=== PATIENT | male | born 1990 | race Caucasian/White ===

== ENCOUNTER 2020-10-14 17:17 | Emergency (ER) | payer OTHER ==
[2020-10-14 17:26] VITALS: BP 140/90
--- NOTE | 2020-10-14 17:27 | ED Physician Documentation ---
History of Present Illness - Stated complaint Stated Complaint: BUMP ON TOE - Chief complaint Chief Complaint: Ext Problem PD PAST MEDICAL HISTORY - Allergies Allergies/Adverse Reactions: Allergies Allergy/AdvReac Type Severity Reaction Status Date / Time No Known Drug Allergies Allergy Verified 10/14/20 17:22 Results - Vitals Vitals: Vital Signs - 24 hr 10/14/20 17:22 Temperature 36.5 C Heart Rate 90 Respiratory 16 Rate Blood Pressure 140/90 H O2 Saturation 98 Oxygen O2 Source Room air
[2020-10-14] MEDS ORDERED: LIDOCAINE-EPINEPH-TETRACAINE 3 ML SYRINGE TOP STA (17:41)
[2020-10-14] MEDS ORDERED: LIDOCAINE 1%-EPI 1:100000 20 ML MDV SUBQ STA (17:41)
--- NOTE | 2020-10-14 18:01 | ED Physician Documentation ---
PD HPI SKIN - Stated complaint Stated Complaint: BUMP ON TOE - Chief complaint Chief Complaint: Ext Problem - History obtained from History obtained from: Patient - History of Present Illness Timing - onset: How many weeks ago (2-3) Timing - duration: Weeks (2-3) Timing - details: Gradual onset, Waxing and waning Location: Other (left great toe nailbed corner) Quality / character: Painful, Swelling (He has noted waxing and waning degree of swelling and localized inflammation at the corner of the nailbed for a few weeks. No particular drainage. Some tenderness in the area and redness.) Associated symptoms: No: Fever, Myalgias Similar symptoms before: Has not had sx before Recently seen: Clinic (seen video telehealth by THOMAS earlier today and Rx antibiotic ointment, but told he may need to be seen in ER (they are not doing in person visits).) Review of Systems Constitutional: denies: Fever Nose: denies: Rhinorrhea / runny nose, Congestion Throat: denies: Sore throat Respiratory: denies: Cough Neurologic: denies: Focal weakness, Numbness PD PAST MEDICAL HISTORY - Past Medical History Past Medical History: No - Past Surgical History Past Surgical History: No - Allergies Allergies/Adverse Reactions: Allergies Allergy/AdvReac Type Severity Reaction Status Date / Time No Known Drug Allergies Allergy Verified 10/14/20 17:22 - Social History Does the pt smoke?: No Smoking Status: Never smoker Does the pt drink ETOH?: No Does the pt have substance abuse?: No - Immunizations Immunizations are current?: Yes - POLST Patient has POLST: No PD ED PE NORMAL - Vitals Vital signs reviewed: Yes - General General: Alert and oriented X 3, No acute distress, Well developed/nourished - Derm Derm: Normal color, Warm and dry - Extremities Extremities: Other (The dural proximal corner of the left great toe nailbed shows mild redness and swelling without any fluctuance. There is palpable moderate ingrown nail laterally. There is a 5 to 6 mm sized rounded area of hypertrophic granulation tissue which is tender and slightly bleeding.) Results - Vitals Vitals: Vital Signs - 24 hr 10/14/20 17:22 Temperature 36.5 C Heart Rate 90 Respiratory 16 Rate Blood Pressure 140/90 H O2 Saturation 98 Oxygen O2 Source Room air PD MEDICAL DECISION MAKING - ED course Complexity details: considered differential (seems some ingrown nail with mild infection and excess granulation tissue. ), d/w patient ED course: Topical L ET was used to numb the corner with the granulation tissue. He states it was tolerably not tender and I excised it with a scalpel tip and applied some silver nitrate to the corner which diminish the bleeding. I used scissors to cut the corner of the ingrown nail out. There was a faint bit of purulence but no abscess. The area was then bandaged with petroleum gauze and dry gauze and Coban. Departure - Departure Disposition: 01 Home, Self Care Clinical Impression: Excessive granulation tissue of toe, Ingrown toenail with infection Condition: Stable Record reviewed to determine appropriate education?: Yes Follow-Up: Fran Marsh MD [Primary Care Provider] - Comments: Leave the anastrozole bandage on tonight or into the morning. Then you can clean the area and soak it and apply the previously prescribed ointment and apply Band-Aid or wrapping. With the granulation tissue away and the ingrown part of the nail out, the nailbed should heal without any recurrence of the granulation. Recheck if not fully improved and healed over the next week.
== END 2020-10-14 18:28 | disposition home or self-care (01) ==
LOC: ED 17:17
DX: L60.0 Ingrowing nail (principal); L08.89 Other specified local infections of the skin and subcutaneous tissue; L92.9 Granulomatous disorder of the skin and subcutaneous tissue, unspecified
CPT/HCPCS: 11765; 99282; 99283

== ENCOUNTER 2021-10-01 18:13 | Emergency (ER) | payer OTHER ==
--- NOTE | 2021-10-01 18:54 | ED Physician Documentation ---
History of Present Illness - Stated complaint Stated Complaint: RT CALF BRUISE/INJ - Chief complaint Chief Complaint: General - Additonal information Additional information: 31-year-old male presents emergency department for evaluation of acute right lower anterior leg ecchymosis. He denies any pain. He reports that about 2 weeks ago he was hit in the upper ross while playing baseball with a grounded ball. However no associated injury or pain since. 3 days ago he was [place] the [place] [facility] and did jump a rather long cre[place]. He denies any known injury but this morning when he woke up and put on his boots he noted ecchymosis to the leg. No pain with ambulation. He is not anticoagulated. No history of DVT or cancer. Review of Systems Constitutional: denies: Fever, Chills Eyes: reports: Reviewed and negative Ears: reports: Reviewed and negative Nose: reports: Reviewed and negative Cardiac: reports: Reviewed and negative Respiratory: reports: Reviewed and negative GI: reports: Reviewed and negative : reports: Reviewed and negative Skin: reports: Other (ecchymosis) Musculoskeletal: denies: Extremity pain PD PAST MEDICAL HISTORY - Past Surgical History Past Surgical History: No - Present Medications Home Medications: Ambulatory Orders Medication Instructions Recorded Confirmed No Known Home Medications 10/01/21 10/01/21 - Allergies Allergies/Adverse Reactions: Allergies Allergy/AdvReac Type Severity Reaction Status Date / Time No Known Drug Allergies Allergy Verified 10/01/21 18:22 - Social History Does the pt smoke?: No Smoking Status: Never smoker Does the pt drink ETOH?: No Does the pt have substance abuse?: No - Immunizations Immunizations are current?: Yes - POLST Patient has POLST: No PD ED PE EXPANDED - General General: Alert, No acute distress, Well developed/nourished - Extremities Extremities: Right leg (ecchymosis lowre anterior leg. no tenderness. no poste rior calf pain tenderness. normal gait. able to jump well. ) Results - Vitals Vitals: Vital Signs - 24 hr 10/01/21 18:17 Temperature 36.2 C L Heart Rate 95 Respiratory 16 Rate Blood Pressure 146/102 H O2 Saturation 97 Oxygen O2 Source Room air - Rads (name of study) right tib Radiology: Final report received (No acute fracture or dislocation.) PD MEDICAL DECISION MAKING - ED course Complexity details: reviewed results, considered differential, d/w patient ED course: 31-year-old male presents emergency department for evaluation of acute onset ecchymosis that he noted that is new from this morning since waking up. He denies any falls or trauma though 3 days ago he was bouldering with his sons and did do some longer jumps across crevasses. He has a normal gait and no real tenderness is elicited in the area of ecchymosis. By Wells criteria negative for DVT. X-ray is without acute focal findings. Routine care of ecchymosis discussed. Emergent return precautions otherwise described. Departure - Departure Disposition: Home, Self Care Clinical Impression: Traumatic ecchymosis of right lower leg Qualifiers: Encounter type: initial encounter Qualified Code(s): S80.11XA - Contusion of right lower leg, initial encounter Condition: Stable Record reviewed to determine appropriate education?: Yes Comments: The x-ray of your leg does not show any broken bones. The cause of the bruising on your lower leg is not clear though I do think it is likely related to the jumping from 3 days ago. In general no specific treatment is needed for this bruising. I would expect it to dissipate over the next 10 to 14 days. If you have any discomfort you can take Tylenol or ibuprofen [id number]. Return to the ER if you have swelling of the leg, sudden shortness of breath or chest pain.
--- NOTE | 2021-10-01 20:13 | XRAY Report ---
PROCEDURE: Tib/Fib RT INDICATIONS: ecchymosis; r/o ooccult fx TECHNIQUE: 2 views of the tibia and fibula were acquired. COMPARISON: None FINDINGS: Bones: No fractures or dislocations. No suspicious bony lesions. Soft tissues: No suspicious soft tissue calcifications or masses. IMPRESSION: No evidence of acute bony abnormality of the right tibia and fibula. Reviewed by: James Nicholson MD on 10/01/2021 8:12 PM PDT Approved by: James Nicholson MD on 10/01/2021 8:12 PM PDT Station ID: [id number]
[2021-10-01 20:21] VITALS: BP 136/98
== END 2021-10-01 20:20 | disposition home or self-care (01) ==
LOC: ED 18:13
DX: S80.11XA Contusion of right lower leg, initial encounter (principal); W21.03XA Struck by baseball, initial encounter; Y93.64 Activity, baseball
CPT/HCPCS: 99282; 99283

== ENCOUNTER 2021-10-23 08:00 | Outpatient (CLI) | payer OTHER | END 2021-10-23 23:59 | disposition home or self-care (01) | LOC: LAB.N 08:00 | PROVIDERS: ATTEND Family Medicine | DX: J06.9 Acute upper respiratory infection, unspecified (principal); Z20.822 Contact with and (suspected) exposure to COVID-19 | CPT/HCPCS: 87070 ==

== ENCOUNTER 2022-06-06 15:41 | Emergency (ER) | payer OTHER ==
[2022-06-06 15:55] VITALS: BP 150/107
[2022-06-06] MEDS ORDERED: KETAMINE 40 MG in SODIUM CHLORIDE 0.9% 100ML 100 ML IV STA (16:06)
[2022-06-06] MEDS ORDERED: MIDAZOLAM 2 MG/2 ML VIAL IVP STA (16:06)
--- NOTE | 2022-06-06 16:08 | ED Physician Documentation ---
PD HPI MHE - Stated complaint Stated Complaint: MHE - Chief complaint Chief Complaint: MHE - History obtained from History obtained from: Patient, Family - Additional information Additional information: 31-year-old gentleman with extensive family history of depression and presents today because he thinks he is depressed. He states he feels nothing inside him and just does not care about anything. He has stressors at work which he does not want to talk about. He is not under any medical treatment for depression and did see a counselor a few days ago, that was the first time he sought help with his depression. He arrives accompanied by his supportive who drove him here. On initial evaluation he does not know if he wants inpatient treatment or not. He denies SI or HI. Review of Systems Ten Systems: 10 systems reviewed and negative Constitutional: reports: Reviewed and negative Cardiac: reports: Reviewed and negative Respiratory: reports: Reviewed and negative PD PAST MEDICAL HISTORY - Past Surgical History Past Surgical History: No - Present Medications Home Medications: Ambulatory Orders Medication Instructions Recorded Confirmed No Known Home Medications 10/01/21 06/06/22 - Allergies Allergies/Adverse Reactions: Allergies Allergy/AdvReac Type Severity Reaction Status Date / Time No Known Drug Allergies Allergy Verified 06/06/22 16:51 - Social History Does the pt smoke?: No Smoking Status: Never smoker Does the pt drink ETOH?: No Does the pt have substance abuse?: No - Immunizations Immunizations are current?: Yes - POLST Patient has POLST: No PD ED PE NORMAL - Vitals Vital signs reviewed: Yes - General General: Alert and oriented X 3, Other (Poor eye contact and despondent) - HEENT HEENT: PERRL, EOMI - Neck Neck: Supple, no meningeal sign, No bony TTP - Cardiac Cardiac: RRR, No murmur - Respiratory Respiratory: No respiratory distress, Clear bilaterally - Abdomen Abdomen: Normal bowel sounds, Soft, Non tender - Back Back: No CVA TTP, No spinal TTP - Derm Derm: Normal color, Warm and dry - Extremities Extremities: No edema, No calf tenderness / cord - Neuro Neuro: Alert and oriented X 3, No motor deficit, No sensory deficit, Normal speech Results - Vitals Vitals: Vital Signs - 24 hr 06/06/22 15:48 Temperature 97.9 C H Heart Rate 92 Respiratory 18 Rate Blood Pressure 150/107 H O2 Saturation 98 Oxygen O2 Source Room air - Labs Labs: Laboratory Tests 06/06/22 06/06/22 06/06/22 16:00 16:13 16:13 WBC 5.0 RBC 4.67 L Hgb 14.9 Hct 41.0 L MCV 87.8 MCH 31.9 H MCHC 36.3 H RDW 11.9 L Plt Count 200 MPV 9.0 Neut # (Auto) 2.8 Lymph # (Auto) 1.8 [place] # (Auto) 0.3 Eos # (Auto) 0.1 Baso # (Auto) 0.0 Absolute Nucleated RBC 0.00 Nucleated RBC % 0.0 Sodium 135 Potassium 4.1 Chloride 97 L Carbon Dioxide 28 Anion Gap 10.0 BUN 9 Creatinine 0.9 Estimated GFR (MDRD) 100 Glucose 99 Calcium 9.2 Total Bilirubin 0.7 AST 49 H ALT 46 Alkaline Phosphatase 49 Total Protein 8.0 Albumin 4.7 Globulin 3.3 Albumin/Globulin Ratio 1.4 Lipase 36 TSH Urine Color YELLOW Urine Clarity CLEAR Urine pH 6.5 Ur Specific [place] 1.010 Urine Protein NEGATIVE Urine Glucose (UA) NEGATIVE Urine Ketones NEGATIVE Urine Occult Blood NEGATIVE Urine Nitrite NEGATIVE Urine Bilirubin NEGATIVE Urine Urobilinogen 0.2 (NORMAL) Ur Leukocyte Esterase NEGATIVE Ur Microscopic Review NOT INDICATED Urine Culture Comments NOT INDICATED Salicylates < 6.0 Urine Opiates Screen NEGATIVE Ur Oxycodone Screen NEGATIVE Urine Methadone Screen NEGATIVE Ur Propoxyphene Screen NEGATIVE Acetaminophen < 10 L Ur Barbiturates Screen NEGATIVE Ur Tricyclics Screen NEGATIVE Ur Phencyclidine Scrn NEGATIVE Ur Amphetamine Screen NEGATIVE U Methamphetamines Scrn NEGATIVE U Benzodiazepines Scrn NEGATIVE Urine Cocaine Screen NEGATIVE U Cannabinoids Screen NEGATIVE Ethyl Alcohol 323.8 SARS-CoV-2 (PCR) 06/06/22 06/06/22 16:13 16:44 WBC RBC Hgb Hct MCV MCH MCHC RDW Plt Count MPV Neut # (Auto) Lymph # (Auto) [place] # (Auto) Eos # (Auto) Baso # (Auto) Absolute Nucleated RBC Nucleated RBC % Sodium Potassium Chloride Carbon Dioxide Anion Gap BUN Creatinine Estimated GFR (MDRD) Glucose Calcium Total Bilirubin AST ALT Alkaline Phosphatase Total Protein Albumin Globulin Albumin/Globulin Ratio Lipase TSH 1.32 Urine Color Urine Clarity Urine pH Ur Specific [place] Urine Protein Urine Glucose (UA) Urine Ketones Urine Occult Blood Urine Nitrite Urine Bilirubin Urine Urobilinogen Ur Leukocyte Esterase Ur Microscopic Review Urine Culture Comments Salicylates Urine Opiates Screen Ur Oxycodone Screen Urine Methadone Screen Ur Propoxyphene Screen Acetaminophen Ur Barbiturates Screen Ur Tricyclics Screen Ur Phencyclidine Scrn Ur Amphetamine Screen U Methamphetamines Scrn U Benzodiazepines Scrn Urine Cocaine Screen U Cannabinoids Screen Ethyl Alcohol SARS-CoV-2 (PCR) NOT DETECTED PD MEDICAL DECISION MAKING - ED course ED course: 31-year-old gentleman presents with his for evaluation of depression. He was a difficult historian initially and I thought I smelled alcohol on his breath although He and his said he had been drinking today. We discussed options including starting an antidepressant, a trial of a ketamine infusion or inpatient treatment. He had difficulty making this decision but he and his settled on the ketamine infusion. He was given a milligram of Versed prior to the ketamine starting at around the time the nurse was starting the ketamine drip it was noted that his blood alcohol was 323. Given this I discussed with the patient and I did not feel comfortable giving ketamine with this blood alcohol level and he would need to sober up and we would need to reassess. He became tired of waiting understandably. He has no SI or HI and requested discharge to return in the morning for reevaluation with when sober. He is with his supportive and sober appearing who agrees with that. Departure - Departure Disposition: 01 Home, Self Care Clinical Impression: Depressive disorder Alcoholic intoxication Qualifiers: Complication of substance-induced condition: uncomplicated Qualified Code(s): F10.920 - Alcohol use, unspecified with intoxication, uncomplicated Condition: Good Record reviewed to determine appropriate education?: Yes Instructions: ED Depression, ED Alcohol Intoxication Comments: Return tomorrow for reevaluation, do not drink tonight. We can talk about options for inpatient and/or outpatient treatment tomorrow when you are sober. Do not drive tonight, stay with your supportive . Discharge Date/Time: 06/06/22 18:01
[2022-06-06 16:19] LABS: BASOPHILS % (AUTO) 0.8 %; EOSINOPHILS # (AUTO) 0.1 10^3/uL (0.0-0.7); HGB - HEMOGLOBIN 14.9 g/dL (14.0-18.0); LYMPHOCYTES # (AUTO) 1.8 10^3/uL (1.5-3.5); LYMPHOCYTES % (AUTO) 35.3 %; MEAN CORPUSCULAR HEMOGLOBIN 31.9 pg (27.0-31.0); MEAN CORPUSCULAR HGB CONC 36.3 g/dL (32.0-36.0); MEAN CORPUSCULAR VOLUME 87.8 fL (80.0-94.0); MONOCYTES # (AUTO) 0.3 10^3/uL (0.0-1.0); MONOCYTES % (AUTO) 5.6 %; NEUTROPHILS # (AUTO) 2.8 10^3/uL (1.5-6.6); NEUTROPHILS % (AUTO) 56.9 %; PLT - PLATELET COUNT 200 10^3/uL (130-450); RED BLOOD COUNT 4.67 10^6/uL (4.70-6.10); RED CELL DISTRIBUTION WIDTH 11.9 % (12.0-15.0)
[2022-06-06 16:34] LABS: MUDS CUTOFF CONCENTRATIONS CUTOFF CONC BELOW:
[2022-06-06 16:35] LABS: BILIRUBIN,URINE NEGATIVE (NEGATIVE); GLUCOSE, URINE (UA) NEGATIVE (NEGATIVE); KETONES,URINE (UA) NEGATIVE (NEGATIVE); LEUKOCYTE ESTERASE, URINE NEGATIVE (NEGATIVE); NITRITE,URINE NEGATIVE (NEGATIVE); OCCULT BLOOD,URINE NEGATIVE (NEGATIVE); PH,URINE 6.5 PH (5.0-7.5); PROTEIN,URINE NEGATIVE (NEGATIVE); UROBILINOGEN,URINE 0.2 (NORMAL) E.U./dL (NORMAL)
[2022-06-06 16:38] LABS: ACETAMINOPHEN < 10 ug/mL (10-30); ALBUMIN 4.7 g/dL (3.2-5.5); ALBUMIN/GLOBULIN RATIO 1.4 (1.0-2.2); ALKALINE PHOSPHATASE 49 IU/L (42-121); ALT ALANINE AMINOTRANSFERASE 46 IU/L (10-60); AST ASPARTATE AMINOTRANSFERASE 49 IU/L (10-42); BILIRUBIN,TOTAL 0.7 mg/dL (0.2-1.0); BUN - BLOOD UREA NITROGEN 9 mg/dL (6-20); CALCIUM 9.2 mg/dL (8.5-10.3); CARBON DIOXIDE - CO2 28 mmol/L (21-32); CHLORIDE 97 mmol/L (101-111); CREATININE 0.9 mg/dL (0.6-1.2); ETOH - ETHANOL 323.8 mg/dL; GFR - MDRD 100 (>89); GLUCOSE 99 mg/dL (70-100); LIPASE 36 U/L (22-51); POTASSIUM 4.1 mmol/L (3.5-5.0); SALICYLATE < 6.0 mg/dL; SODIUM 135 mmol/L (135-145)
[2022-06-06 16:40] LABS: CLARITY,URINE CLEAR (CLEAR)
[2022-06-06 16:46] LABS: AMPHETAMINE SCREEN,URINE NEGATIVE (NEGATIVE); BARBITURATE SCREEN,UR NEGATIVE (NEGATIVE); BENZODIAZEPINES SCREEN, URINE NEGATIVE (NEGATIVE); COCAINE SCREEN URINE NEGATIVE (NEGATIVE); METHADONE SCREEN, URINE NEGATIVE (NEGATIVE); METHAMPHETAMINES SCREEN, URINE NEGATIVE (NEGATIVE); OPIATE SCREEN, URINE NEGATIVE (NEGATIVE); OXYCODONE SCREEN, URINE NEGATIVE (NEGATIVE); PROPOXYPHENE SCREEN, URINE NEGATIVE (NEGATIVE); THC CANNABINOID SCREEN, URINE NEGATIVE (NEGATIVE); TRICYCLIC ANTIDEPRESSANT,URINE NEGATIVE (NEGATIVE)
== END 2022-06-06 18:01 | disposition home or self-care (01) ==
LOC: ED 15:41
DX: F32.A Depression, unspecified (principal); F10.129 Alcohol abuse with intoxication, unspecified; Z20.822 Contact with and (suspected) exposure to COVID-19
CPT/HCPCS: 36415; 80053; 80306; 80307; 80320; 80329; 81001; 81003; 83690; 84443; 85025; 87086; 96374; 99283